=== PATIENT | male | born 1995 | race African-American/Black ===

== ENCOUNTER 2020-03-17 07:07 | Emergency (ER) | payer MEDICAID ==
[~2020-03-17] VITALS: Ht 185.4 cm; Wt 120.0 kg
[2020-03-17] MEDS ORDERED: OXYCODONE HCL/ACETAMINOPHEN 5/325MG TABLET PO ONE (07:45)
[2020-03-17 07:47] VITALS: BP 156/78
== END 2020-03-17 09:18 | disposition home or self-care (01) ==
LOC: ER 07:07
DX: S60.052A Contusion of left little finger without damage to nail, initial encounter (principal); V19.88XA Pedal cyclist (driver) (passenger) injured in other specified transport accidents, initial encounter; Y93.55 Activity, bike riding; Y92.9 Unspecified place or not applicable
CPT/HCPCS: 29130; 73130; 73700; 99284

== ENCOUNTER 2020-03-21 00:24 | Emergency (ER) | payer MEDICAID ==
[~2020-03-21] VITALS: Ht 175.3 cm; Wt 95.0 kg
[2020-03-21 00:46] VITALS: BP 151/79
[2020-03-21] MEDS ORDERED: ACETAMINOPHEN WITH CODEINE 300/30MG TABLET PO ONE (01:15)
== END 2020-03-21 01:49 | disposition home or self-care (01) ==
LOC: ER 00:24
DX: S60.222A Contusion of left hand, initial encounter (principal); W18.39XA Other fall on same level, initial encounter; Y93.89 Activity, other specified; Y92.89 Other specified places as the place of occurrence of the external cause; Y99.8 Other external cause status
CPT/HCPCS: 99282; 99283

== ENCOUNTER 2020-12-19 12:17 | Emergency (ER) | payer MEDICAID ==
[~2020-12-19] VITALS: Ht 182.9 cm; Wt 120.0 kg
[2020-12-19] MEDS ORDERED: SODIUM CHLORIDE 0.9% 1,000 ML IV ONE (12:45)
[2020-12-19] MEDS ORDERED: ASPIRIN 325MG EC TABLET PO ONE (12:45)
[2020-12-19 13:12] LABS: BASOPHILS % 1.2 % (0.0-2.0); EOSINOPHILS % 0.8 % (0.0-5.0); HEMATOCRIT. 41.6 % (42.0-52.0); HEMOGLOBIN. 13.8 g/dL (14.0-18.0); LYMPHOCYTES % 36.3 % (20.0-50.0); MEAN CORPUSCULAR HEMOGLOBIN 28.9 pg (28.0-32.0); MEAN CORPUSCULAR VOLUME 86.8 fL (80.0-94.0); MEAN PLATELET VOLUME 9.9 fl (7.4-10.4); MONOCYTES % 8.1 % (2.0-8.0); NEUTROPHILS % 53.6 % (40.0-76.0); PLATELET 262 x1000/uL (130-400); RED BLOOD CELL COUNT 4.79 mill/uL (4.7-6.1); RED CELL DISTRIBUTION WIDTH 13.8 % (11.6-14.6)
[2020-12-19 13:19] LABS: CHLORIDE 107 mEq/L (98-107)
[2020-12-19 13:33] LABS: *AMPHETAMINES SCREEN URINE NEGATIVE (NEGATIVE); *BARBITURATES SCREEN URINE NEGATIVE (NEGATIVE); *BENZODIAZEPINES SCREEN URINE NEGATIVE (NEGATIVE); *COCAINE SCREEN URINE NEGATIVE (NEGATIVE); METHADONE URINE SCREEN NEGATIVE (NEGATIVE)
[2020-12-19 13:35] LABS: CANNABINOID URINE SCREEN PRESUMTIVE POSITIVE (NEGATIVE); OPIATES URINE SCREEN NEGATIVE (NEGATIVE); PHENCYCLIDINE URINE SCREEN NEGATIVE (NEGATIVE)
[2020-12-19 16:00] VITALS: BP 134/72
== END 2020-12-19 16:02 | disposition home or self-care (01) ==
LOC: ER 12:23
DX: R07.89 Other chest pain (principal); F12.10 Cannabis abuse, uncomplicated
CPT/HCPCS: 36415; 71045; 80053; 80305; 83880; 84484; 85025; 85379; 93005; 99285; J7030; Z7610

== ENCOUNTER 2021-03-10 13:16 | Emergency (ER) | payer MEDICAID ==
[~2021-03-10] VITALS: Ht 177.8 cm; Wt 82.0 kg
[2021-03-10] MEDS ORDERED: IBUPROFEN 600MG TABLET PO STA (13:56)
[2021-03-10] MEDS ORDERED: BACITRACIN ZINC OINT UDPKT TOP ONE (14:00)
[2021-03-10] MEDS ORDERED: LIDOCAINE HCL/PF 1% 10 MG/ML 5ML VIAL INFIL ONE (14:00)
[2021-03-10 14:38] VITALS: BP 143/98
[2021-03-10] MEDS ORDERED: AMOX-424 PO (16:08)
[2021-03-10] MEDS ORDERED: IBUP-2029 PO (16:08)
== END 2021-03-10 16:52 | disposition home or self-care (01) ==
LOC: ER 13:16
DX: S61.218A Laceration without foreign body of other finger without damage to nail, initial encounter (principal); S61.258A Open bite of other finger without damage to nail, initial encounter; Y04.1XXA Assault by human bite, initial encounter; Y93.89 Activity, other specified; Y92.9 Unspecified place or not applicable
CPT/HCPCS: 12001; 73130; 99283; J3490; Z7610

== ENCOUNTER 2021-07-25 17:41 | Emergency (ER) | payer MEDICAID ==
[~2021-07-25] VITALS: Ht 182.9 cm; Wt 123.0 kg
[~2021-07-25 17:41] MED LIST: AMOX-424 PO; IBUP-2029 PO
[2021-07-25] MEDS ORDERED: HYDROCODONE/ACETAMINOPHEN 5/325MG TABLET PO ONE (18:30)
[2021-07-25 19:43] VITALS: BP 132/86
== END 2021-07-25 20:44 | disposition home or self-care (01) ==
LOC: ER 17:41
DX: S89.81XA Other specified injuries of right lower leg, initial encounter (principal); M25.461 Effusion, right knee; F12.10 Cannabis abuse, uncomplicated; X50.1XXA Overexertion from prolonged static or awkward postures, initial encounter; Y93.89 Activity, other specified; Y92.018 Other place in single-family (private) house as the place of occurrence of the external cause
CPT/HCPCS: 20610; 73562; 99283; L1830; Z7610

== ENCOUNTER 2021-08-02 05:51 | Emergency (ER) | payer MEDICAID ==
[~2021-08-02] VITALS: Ht 182.9 cm; Wt 123.0 kg
[2021-08-02 05:54] VITALS: BP 121/73
[2021-08-02] MEDS ORDERED: CEFTRIAXONE SODIUM 250 MG/VIAL IM ONE (07:00)
[2021-08-02] MEDS ORDERED: AZITHROMYCIN 500 MG TABLET PO ONE (07:00)
[2021-08-04 04:14] LABS: NEISSERIA GONORRHOEAE NAA Negative (Negative)
== END 2021-08-02 08:01 | disposition home or self-care (01) ==
LOC: ER 05:51
DX: N34.2 Other urethritis (principal); F12.10 Cannabis abuse, uncomplicated; Z11.3 Encounter for screening for infections with a predominantly sexual mode of transmission
CPT/HCPCS: 87491; 87591; 96372; 99283; J0696